=== PATIENT | female | born 1980 | race African-American/Black ===

== ENCOUNTER 2018-07-15 17:03 | Outpatient (CLI) | payer SELFPAY ==
[~2018-07-15] VITALS: Ht 160 cm; Wt 69.9 kg
[2018-07-15 18:47] VITALS: BP 106/65; PULSE 80; RESP 17; Ht 160 cm; Wt 69.9 kg
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
== END 2018-07-15 22:43 | disposition home or self-care (01) ==
LOC: OBT 17:03 → L-D 17:05 → OBT 22:43
PROVIDERS: ATTEND Obstetrics & Gynecology
DX: O9A.213 Injury, poisoning and certain other consequences of external causes complicating pregnancy, third trimester (principal); V43.62XA Car passenger injured in collision with other type car in traffic accident, initial encounter; Y92.410 Unspecified street and highway as the place of occurrence of the external cause; O09.513 Supervision of elderly primigravida, third trimester; Z3A.29 29 weeks gestation of pregnancy
CPT/HCPCS: 76815; 76817; 76818; 85025; 85460; 86850; 86900; 86901; G0463